=== PATIENT | female | born 1990 | race Asian ===

== ENCOUNTER 2022-03-02 02:14 | Outpatient (CLI) | payer OTHER, MEDICAID, SELFPAY | END 2022-03-02 03:14 | disposition home or self-care (01) | LOC: OB 15:15 | PROVIDERS: PCP Registered Nurse Women's Health Care, Ambulatory; Referring Provider Obstetrics & Gynecology; Visit Provider Obstetrics & Gynecology | DX: O26.893 Other specified pregnancy related conditions, third trimester (principal); R10.12 Left upper quadrant pain; Z3A.33 33 weeks gestation of pregnancy | CPT/HCPCS: 59025; G0378; G0379 ==

== ENCOUNTER 2022-03-02 03:24 | Emergency (ER) | payer OTHER, MEDICAID, SELFPAY ==
[2022-03-02 03:32] VITALS: BP 126/86; PULSE 66; RESP 22; TEMP 36.6; O2SAT 99
--- NOTE | 2022-03-02 03:43 | ED.BACK ---
HPI - Back Pain/Injury General Chief Complaint: Back Pain/Injury Stated Complaint: sent from OB Time Seen by Provider: 03/02/22 03:33 History of Present Illness HPI Narrative: Otherwise healthy 31-year-old at 34 weeks presents with left rib pain. She notes that she has been having difficulty with emesis as well as reflux with this . With a number of episodes of very violent emesis she developed some left-sided rib pain for which she was evaluated at [facility]. An x-ray was done that did not suggest acute rib fractures. She was given cyclobenzaprine which she found unhelpful and has continued using Tylenol. Pain seem to be improving until a day or 2 ago when she had a rather violent sneeze and recurrent pain issues. She was seen in labor and delivery this evening with reassurance is regarding the safety of her baby in absence of labor or complications and sent to emergency room for further evaluation. She continues to have emesis, reflux, occasional lower extremity edema but is feeling the baby move nicely no headaches, significant for productive cough, no cardiac palpitations. Related Data Previous Rx's Medication Instructions Recorded lidocaine 5 % topical patch 1 patch TOPICAL DAILY #15 ea 03/02/22 oxycodone-acetaminophen 5 mg-325 1 tab PO Q6H PRN #10 tab 03/02/22 mg tablet Allergies Allergy/AdvReac Type Severity Reaction Status Date / Time No Known Drug Allergies Allergy Verified 03/02/22 03:53 Review of Systems Review of Systems Narrative: Remainder of complete review of systems is otherwise unremarkable except for that included in the HPI. Exam Initial Vital Signs Initial Vital Signs: Vital Signs Temperature 98 F 03/02/22 03:32 Pulse Rate 66 03/02/22 03:32 Respiratory Rate 22 03/02/22 03:32 Blood Pressure 126/86 03/02/22 03:32 Pulse Oximetry 99 03/02/22 03:32 General: Healthy appearing, in no acute distress. Able to give a complete and coherent history. Well-nourished well-developed HEENT: Moist mucous membranes, normal sclera with reactive pupils, Respiratory: Lungs are clear to auscultation, no wheezing no rales no rhonchi. Full and symmetrical air movement Chest: Head pain is reproducible with palpation over the superior anterior portions of ribs 10 11 along the anterior axillary line. There are no skin changes, contusions or abrasions over that area. She is having a significant amount of pain and splinting through the area. Cardiac: Regular rate and rhythm no murmurs no bruits Abdomen: Soft, gravid, nontender, good bowel tones, no flank pain Skin: Warm and dry, no rashes Neurologic: Grossly neurologically intact with no obvious asymmetries or abnormalities Extremities: No trauma, well perfused Psych: Cooperative, appropriate insight and affect Course Orders Ordered: Discontinued Medications Lidocaine (Lidocaine Patch 1 Each Adh..Patch) 1 each TOP NOW ONE Stop: 03/02/22 03:44 Last Admin: 03/02/22 03:51 Dose: 1 each Documented by: CLEM Oxycodone/Acetaminophen (Oxycodone/Acetaminophen 5/325 Tablet) 1 tab PO NOW ONE Stop: 03/02/22 03:44 Last Admin: 03/02/22 03:50 Dose: 1 tab Documented by: CLEM Oxycodone/Acetaminophen (Oxycodone/Apap 5/325 Prepack) 1 bottle MISC SEEINSTR ONE Stop: 03/02/22 03:44 Last Admin: 03/02/22 03:50 Dose: 1 bottle Documented by: CLEM Vital Signs Vital signs: Vital Signs - 8 hr 03/02/22 03:32 Temperature 98 F Pulse Rate 66 Respiratory Rate 22 Blood Pressure 126/86 Pulse Oximetry 99 MDM - Back Pain/Injury MDM Narrative Medical decision making narrative: 31-year-old woman at 34 weeks gestational age with left-sided rib pain reproducible with palpation. I suspect she has pulled the intercostal muscles away from the rib itself which is why the pain is persisting and then re-injured his the area with sneezing or violent episodes of emesis. Who discussed using a lidocaine patch to dull the pain as much as possible, adding Tylenol to that and if that is not enough adding a Percocet for severe pain. We also discussed making sure that she is drinking plenty of water an adding fiber to her diet to avoid narcotic induced constipation. There is no evidence for acute coronary abnormalities, pleural effusion, pneumothorax, pancreatitis or other medical abnormalities to explain the rib pain she currently is experiencing. Discharge Plan Departure Patient Disposition: Home Clinical Impression: Intercostal muscle strain Qualifiers: Encounter type: subsequent encounter Qualified Code(s): S29.011D - Strain of muscle and tendon of front wall of thorax, subsequent encounter Qualifiers: Weeks of gestation: 34 weeks Qualified Code(s): Z3A.34 - 34 weeks gestation of Instructions: DI for Rib Contusion Activity Restrictions/Additional Instructions: Thank you for coming in today I suspect with the violence of your emesis and sneeze you have pulled a bit of the muscle between the rib away from an off the edge of the rib. This would absolutely explain the severe pain that your having. I am not finding any evidence of lung, cardiac or abdominal organ issues. I am going to suggest that we try some lidocaine patches. The nerves to this area come from your back so putting the patch slightly closer to your bad but at the same level of the pain will be most helpful. Adding Tylenol to that and if that is ineffective using Percocet which is Tylenol plus oxycodone, a narcotic. Small amounts of narcotic at this point in your are still safe for your . Any narcotic can make you constipated so please make sure you are adding more water, stool softeners and you can also consider adding dried fruit for fiber as well Please follow-up with your OB provider. I hope you feel better Prescriptions: New oxycodone-acetaminophen 5-325 mg tablet 1 tab PO Q6H PRN (Reason: pain) Qty: 10 0RF lidocaine 5 % adhesive patch,medicated 1 patch topical DAILY Qty: 15 0RF Rx Instructions: leave on most painful area for up to 12 hrs Referrals: Rachel Gaitan ARNP [Primary Care Provider] -
[2022-03-02] MEDS: OXYCODONE/APAP 5/325 PREPACK 1 BOTTLE MISC (03:50)
[2022-03-02] MEDS: OXYCODONE/ACETAMINOPHEN 5/325 TABLET 1 TAB PO (03:50)
[2022-03-02] MEDS: LIDOCAINE PATCH 1 EACH ADH..PATCH TOP (03:51)
== END 2022-03-02 04:59 | disposition home or self-care (01) ==
PROVIDERS: Emergency Provider Emergency Medicine; PCP Registered Nurse Women's Health Care, Ambulatory
DX: O26.893 Other specified pregnancy related conditions, third trimester (principal); S29.011A Strain of muscle and tendon of front wall of thorax, initial encounter; R10.12 Left upper quadrant pain; Z3A.34 34 weeks gestation of pregnancy; X50.9XXA Other and unspecified overexertion or strenuous movements or postures, initial encounter
CPT/HCPCS: 59025; 99283